=== PATIENT | female | born 1945 | race African-American/Black ===

== ENCOUNTER 2017-09-26 06:31 | Emergency (ER) | payer MEDICARE, OTHER ==
[~2017-09-26] VITALS: Ht 154.9 cm; Wt 97.4 kg
[~2017-09-26 06:31] MED LIST: AMLO5TAB22 PO; FERR324T4 PO; LISI-363 PO; METF500 PO; POTA-243 PO
[2017-09-26 06:35] VITALS: BP 140/85; PULSE 86; RESP 18; TEMP 97.8; O2SAT 99
--- NOTE | 2017-09-26 06:58 | PD ---
HPI Chief Complaint: injury Time Seen by Provider: 06:43 Travel History International Travel<30 days: No Contact w/Intl Traveler<30days: No Traveled to known affect area: No History of Present Illness HPI 72-year-old female complains of left shoulder pain, left-sided chest wall pain, left hip pain. Patient fell on the left side about 2 weeks ago. Patient states that she had persistent pain on the left shoulder left-sided chest wall and left hip since then. Patient denies any head injury. Patient denies any headache or neck pain. Patient denies any shortness of breath. Patient denies abdominal pain. Patient denies any back pain. Patient states the pain is sharp pain localized to left shoulder, left chest wall left hip. Patient denies any pain radiation. Patient states that the pain is worse with movement of the left shoulder joint and left hip. Patient has history of breast cancer status post left breast lumpectomy with sentinel node biopsy, radiation therapy and chemotherapy. Patient has history of diabetes, hypertension, chronic kidney disease, anemia. PFSH Past Medical History High Cholesterol: Yes Diabetes: Yes Diminished Hearing: No Gout: Yes Hypertension: Yes Immunizations Current: Yes Past Surgical History Appendectomy: Yes Hysterectomy: Yes Joint Replacement: Yes (BILATERAL KNEES) Social History Alcohol Use: No Tobacco Use: No Substance Use: No Allergies-Medications (Allergen,Severity, Reaction): Coded Allergies: acetaminophen (Unverified Allergy, Severe, 05/01/17) propoxyphene (Unverified Allergy, Severe, 05/01/17) indomethacin (Unverified Adverse Reaction, Mild, GI UPSET, 05/01/17) Reported Meds & Prescriptions Reported Meds & Active Scripts Active Glucophage 500 mg (Metformin HCl) 500 Mg Tab 500 Mg PO BIDPC 30 Days Ferrous Sulfate 325 Mg Tab 325 Mg PO BID 30 Days Lisinopril 20 mg (Lisinopril) 20 Mg Tab 1 Tab PO DAILY Hold until PCP follow-up Reported Amlodipine Besylate 5 mg (Amlodipine Besylate) 5 Mg Tab 1 Tab PO DAILY K-Dur (Potassium Chloride) 10 Meq Tabcr 10 Meq PO DAILY UNKNOWN DOSE Review of Systems General / Constitutional: No: Fever Eyes: No: Visual changes HENT: No: Headaches Cardiovascular: No: Chest Pain or Discomfort Respiratory: No: Shortness of Breath Gastrointestinal: No: Abdominal Pain Genitourinary: No: Dysuria Musculoskeletal: Positive: Pain Skin: No Rash Neurologic: No: Weakness Psychiatric: No: Depression Endocrine: No: Polydipsia Hematologic/Lymphatic: No: Easy Bruising Physical Exam Narrative GENERAL: Well-nourished, well-developed patient. SKIN: Focused skin assessment warm/dry. HEAD: Normocephalic. EYES: No scleral icterus. No injection or drainage. NECK: Supple, trachea midline. No JVD or lymphadenopathy. CARDIOVASCULAR: Regular rate and rhythm without murmurs, gallops, or rubs. RESPIRATORY: Breath sounds equal bilaterally. No accessory muscle use. GASTROINTESTINAL: Abdomen soft, non-tender, nondistended. MUSCULOSKELETAL: Patient has moderate tenderness on palpation diffusely over the left shoulder, left sided chest wall mid axillary line, lateral aspect of the left hip. Limited range of motion the left shoulder secondary to pain. No chest wall crepitus or deformity noted. Full range of motion the left hip. BACK: Nontender without obvious deformity. No CVA tenderness. Neurologic exam normal. Data Data Last Documented VS Vital Signs Date Time Temp Pulse Resp B/P (MAP) Pulse Ox O2 Delivery O2 Flow Rate FiO2 09/26/17 06:35 97.8 86 18 140/85 (103) 99 Orders Orders Hip, Uni(Ap&Lat) W Ap Pelvis (09/26/17 06:49) Shoulder, Limited(2vws) (09/26/17 06:49) Ribs, Uni (W/Exp Cxr-Min 3vw) (09/26/17 06:49) MDM Medical Decision Making Medical Screen Exam Complete: Yes Emergency Medical Condition: Yes Differential Diagnosis Differential diagnosis including contusion, fracture, dislocation, hemopneumothorax. Narrative Course 72-year-old female with left shoulder injury, left chest with injury, left hip injury. Status post fall. Tyson Todd MD Sep 26, 2017 06:58
[2017-09-26] MEDS ORDERED: SPIR50TA PO (07:12)
[2017-09-26] MEDS ORDERED: FERR325T18 PO (07:12)
[2017-09-26] MEDS ORDERED: METF500T PO (07:12)
[2017-09-26] MEDS ORDERED: FURO20TA PO (07:12)
[2017-09-26] MEDS ORDERED: ALLO100T PO (07:12)
[2017-09-26] MEDS ORDERED: ATOR20TA15 PO (07:12)
[2017-09-26] MEDS ORDERED: ANAS1TAB PO (07:12)
[2017-09-26] MEDS ORDERED: ERGO2000 PO (07:12)
[2017-09-26] MEDS ORDERED: LISI-515 PO (07:12)
[2017-09-26] MEDS ORDERED: POTA10TA2 PO (07:12)
--- NOTE | 2017-09-26 07:45 | RADRPT ---
EXAM DATE/TIME: 09/26/2017 07:12 [facility] COMPARISON: No previous studies available for comparison. INDICATIONS : Fall, left side lateral rib pain. MEDICAL HISTORY : Carcinoma, breast. SURGICAL HISTORY : Mastectomy, bilateral. ENCOUNTER: Initial ACUITY: 2 weeks PAIN SCORE: 10/10 LOCATION: Left lateral ribs FINDINGS: Multiple views of the left ribs were performed. There is no evidence of displaced fracture. No dest ructive lesions or areas of periosteal thickening are seen. Expiratory view of the chest is negative for pneumothorax. The mediastinal structures are midline. CONCLUSION: Unremarakble examination of the left ribs and chest. Donaldo Ramirez MD on September 26, 2017 at 7:41 Board Certified Radiologist. This report was verified electronically.
--- NOTE | 2017-09-26 07:46 | RADRPT ---
EXAM DATE/TIME: 09/26/2017 07:12 [facility] COMPARISON: No previous studies available for comparison. INDICATIONS : Fall, left shoulder pain. MEDICAL HISTORY : Carcinoma, breast. SURGICAL HISTORY : Mastectomy, bilateral. ENCOUNTER: Initial ACUITY: 2 weeks PAIN SCORE: 10/10 LOCATION: Left shoulder FINDINGS: Two view examination of the left shoulder demonstrates no evidence of fracture or dislocation. Mild d egenerative changes. The glenohumeral and acromioclavicular joints are maintained. Bony mineralizati on is normal. CONCLUSION: Mild degenerative changes without fracture. Donaldo Ramirez MD on September 26, 2017 at 7:42 Board Certified Radiologist. This report was verified electronically.
--- NOTE | 2017-09-26 07:47 | RADRPT ---
EXAM DATE/TIME: 09/26/2017 07:12 [facility] COMPARISON: No previous studies available for comparison. INDICATIONS : Fall, left hip pain. MEDICAL HISTORY : None. SURGICAL HISTORY : None. ENCOUNTER: Initial ACUITY: 2 weeks PAIN SCORE: 10/10 LOCATION: Left hip FINDINGS: Examination of the left hip was performed with AP Pelvis. The primary and secondary trabecular patte rn of the femoral neck is intact. The hip joint is of normal width without significant sclerosis or bony hypertrophy. The acetabulum is grossly intact. There is whiskering along the iliac crests. CONCLUSION: Unremarkable examination of the left hip. Donaldo Ramirez MD on September 26, 2017 at 7:43 Board Certified Radiologist. This report was verified electronically.
[2017-09-26] MEDS ORDERED: TYLETAB34 PO (08:16)
--- NOTE | 2017-09-26 08:18 | PD ---
Data Data Last Documented VS Vital Signs Date Time Temp Pulse Resp B/P (MAP) Pulse Ox O2 Delivery O2 Flow Rate FiO2 09/26/17 07:22 16 97 Room Air 09/26/17 06:35 97.8 86 140/85 (103) Orders Orders Hip, Uni(Ap&Lat) W Ap Pelvis (09/26/17 06:49) Shoulder, Limited(2vws) (09/26/17 06:49) Ribs, Uni (W/Exp Cxr-Min 3vw) (09/26/17 06:49) MDM Supervised Visit with DEBI: No Narrative Course This case is checked out to me by Dr. Todd at 7 AM. This patient a fall on her left side and complains of pains throughout the left side but her worst pain is in the left shoulder. I reviewed all of her x-rays and discussed them with her. X-rays of hip and pelvis ribs and shoulder are reviewed and have no fractures seen. There is some mild arthritic change in the left shoulder. She requests something for pain and I wrote a few Tylenol 3's to use as needed. She says she can take them. Her chart lists an acetaminophen allergy which I don't believe is true. Diagnosis Primary Impression: Contusion of shoulder, left Qualified Codes: S40.012A - Contusion of left shoulder, initial encounter Additional Impression: Contusion of rib on left side Qualified Codes: S20.212A - Contusion of left front wall of thorax, initial encounter Additional Instruction: The patient was advised to follow up with their physician and return if they worsen. The patient was warned about potential sedation for the medications they will receive on prescription. Med/Other Pt SpecificInfo: Prescription(s) given Scripts Acetaminophen-Codeine (Tylenol-Codeine #3) 300-30 mg Tab 1 TAB PO Q4H Y for PAIN, #15 TAB 0 Refills Prov: Pavel Jauregui MD 09/26/17 Disposition: 01 DISCHARGE HOME Condition: Stable Pavel Jauregui MD Sep 26, 2017 08:18
== END 2017-09-26 09:15 | disposition home or self-care (01) ==
LOC: PHED 06:31
DX: S40.012A Contusion of left shoulder, initial encounter (principal); S20.212A Contusion of left front wall of thorax, initial encounter; M25.552 Pain in left hip; I12.9 Hypertensive chronic kidney disease with stage 1 through stage 4 chronic kidney disease, or unspecified chronic kidney disease; E11.22 Type 2 diabetes mellitus with diabetic chronic kidney disease; N18.9 Chronic kidney disease, unspecified; W19.XXXA Unspecified fall, initial encounter
CPT/HCPCS: 71101; 73030; 73502; 99284

== ENCOUNTER 2018-02-17 20:21 | Emergency (ER) | payer OTHER ==
[~2018-02-17] VITALS: Ht 160 cm; Wt 98.5 kg
[~2018-02-17 20:21] MED LIST changes: +ALLO100T PO; -AMLO5TAB22 PO; +ANAS1TAB PO; +ATOR20TA15 PO; +ERGO2000 PO; -FERR324T4 PO; +FERR325T18 PO; +FURO20TA PO; -LISI-363 PO; +LISI-515 PO; -METF500 PO; +METF500T PO; -POTA-243 PO; +POTA10TA2 PO; +SPIR50TA PO; +TYLETAB34 PO
[2018-02-17 20:22] VITALS: BP 180/93; PULSE 90; RESP 18; TEMP 98.5; O2SAT 100
[2018-02-17 21:12] VITALS: BP 162/97; PULSE 82; RESP 18; O2SAT 97
[2018-02-17] MEDS ORDERED: ONDANSETRON ODT 4 MG TAB PO ONE (21:45)
[2018-02-17] MEDS ORDERED: ACETAMINOPHEN/HYDROcodone 325 MG/5 MG TAB PO ONE (21:45)
[2018-02-17 22:15] VITALS: BP 146/91; PULSE 77; RESP 18; O2SAT 97
[2018-02-17] MEDS ORDERED: EXEM25TA PO (22:21)
--- NOTE | 2018-02-17 22:23 | RADRPT ---
EXAM DATE: 02/17/2018 10:19 PM EDT AGE/SEX: 72 years / Female INDICATIONS: Left arm pain. Patient states fell 6 months ago on left arm. CLINICAL DATA: This is the patient's initial encounter. Patient reports that signs and symptoms have been present for 4 - 6 months and indicates a pain score of 8/10. MEDICAL/SURGICAL HISTORY: Carcinoma, breast. None. COMPARISON: No prior [facility] exams available for comparison. FINDINGS: Bony structures are intact and in normal alignment. Osseous density is normal. Soft tissues are unre markable. No radiopaque foreign bodies seen. CONCLUSION: No evidence of recent bony injury. Electronically signed by: Todd Eubanks MD 02/17/2018 10:22 PM EDT
--- NOTE | 2018-02-17 22:23 | RADRPT ---
EXAM DATE: 02/17/2018 10:17 PM EDT AGE/SEX: 72 years / Female INDICATIONS: Chest pain. CLINICAL DATA: This is the patient's initial encounter. Patient reports that signs and symptoms have been present for 1 day and indicates a pain score of 2/10. MEDICAL/SURGICAL HISTORY: Carcinoma, breast. None. COMPARISON: No prior [facility] exams available for comparison. FINDINGS: PA and lateral views of the chest demonstrate the lungs to be symmetrically aerated without evidence of mass, infiltrate or effusion. The cardiomediastinal contours are unremarkable. Osseous structures are intact. CONCLUSION: Negative examination. Electronically signed by: Todd Eubanks MD 02/17/2018 10:22 PM EDT
[2018-02-17 22:43] VITALS: RESP 18
[2018-02-17] MEDS ORDERED: ZOFR4TAB3 SL (23:04)
[2018-02-17] MEDS ORDERED: NORC5TAB PO (23:04)
--- NOTE | 2018-02-17 23:05 | PD ---
HPI Chief Complaint: Numbness/Tingling Time Seen by Provider: 21:34 Travel History International Travel<30 days: No Contact w/Intl Traveler<30days: No Traveled to known affect area: No History of Present Illness HPI 72-year-old female with 6 months of left upper extremity pain and paresthesia states symptoms have not been relieved by [id number] acetaminophen and ibuprofen so presents now for complaint of increased tingling but denies any swelling weakness or new area/distribution of pain or tingling. Symptoms been present since fall with contusion August 2017. Patient has had imaging studies without any abnormalities identified. Patient presents now for reevaluation. Patient does have history of left-sided breast cancer status post lumpectomy and 36 treatments of radiation therapy no other surgical intervention no chemotherapy and patient is currently not undergoing any active management but is being followed by oncology. Patient denies any swelling of the left upper extremity any redness or pallor or coolness or weakness of the left upper extremity. Patient is right-handed. Patient notes limited range of motion at the left shoulder secondary to pain. PFSH Past Medical History Narrative Medical Anemia breast cancer status post lumpectomy and radiation therapy dyslipidemia CAD CHF diabetes hypertension diabetic neuropathy gouty arthritis; no tobacco use; nursing notes reviewed Blood Disorders: Yes (ANEMIA) Cancer: Yes (BREAST CA) Cardiovascular Problems: Yes (HTN) High Cholesterol: Yes Chest Pain: Yes Congestive Heart Failure: Yes Diabetes: Yes Patient Takes Glucophage: Yes Diminished Hearing: No Endocrine: Yes Gout: Yes Hypertension: Yes Immunizations Current: Yes Radiation Therapy: Yes (36 treatments) Influenza Vaccination: No Past Surgical History Appendectomy: Yes Hysterectomy: Yes Joint Replacement: Yes (BILATERAL KNEES) Other Surgery: Yes ( L LUMPECTOMY) Social History Alcohol Use: No Tobacco Use: No Substance Use: No Allergies-Medications (Allergen,Severity, Reaction): Coded Allergies: acetaminophen (Unverified Allergy, Severe, 02/17/18) propoxyphene (Unverified Allergy, Severe, 02/17/18) indomethacin (Unverified Adverse Reaction, Mild, GI UPSET, 02/17/18) Reported Meds & Prescriptions Reported Meds & Active Scripts Active Reported Exemestane 25 Mg Tab 25 Mg PO DAILY Allopurinol 100 Mg Tab 100 Mg PO DAILY Potassium Chloride ER (Potassium Chloride) 10 Meq Tab 10 Meq PO DAILY Ferrous Sulfate 325 Mg (65 Mg Iron) Tablet 325 Mg PO BIDPC Lisinopril 20 Mg Tab 20 Mg PO DAILY Atorvastatin (Atorvastatin Calcium) 20 Mg Tab 20 Mg PO HS Vitamin D2 (Ergocalciferol) 2,000 Unit Tab 50,000 Units PO DAILY Furosemide 20 Mg Tab 20 Mg PO BID Spironolactone 50 Mg Tab 50 Mg PO DAILY Metformin (Metformin HCl) 500 Mg Tab 500 Mg PO BIDPC Review of Systems Except as stated in HPI: all other systems reviewed are Neg Physical Exam Narrative GENERAL: Well-developed well-nourished female no acute distress no respiratory distress GCS 15 SKIN: Warm and dry. HEAD: Normocephalic. EYES: No scleral icterus. No injection or drainage. NECK: Supple, trachea midline. No JVD or lymphadenopathy. No JVD no lymphadenopathy CARDIOVASCULAR: Regular rate and rhythm without murmurs, gallops, or rubs. Chest wall: Nontender no soft tissue swelling RESPIRATORY: Breath sounds equal bilaterally. No accessory muscle use. GASTROINTESTINAL: Abdomen soft, non-tender, nondistended. MUSCULOSKELETAL: No cyanosis, or edema. 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 Data Data Last Documented VS Vital Signs Date Time Temp Pulse Resp B/P (MAP) Pulse Ox O2 Delivery O2 Flow Rate FiO2 02/17/18 21:20 18 Room Air 02/17/18 21:12 82 162/97 (118) 97 02/17/18 20:22 98.5 Orders Orders Humerus (Min 2vws) (02/17/18 ) Chest, Pa & Lat (02/17/18 ) Ondansetron Odt (Zofran Odt) (02/17/18 21:45) Acetamin-Hydrocod 325-5 Mg (Loyal 5-325 (02/17/18 21:45) MDM Medical Decision Making Medical Screen Exam Complete: Yes Emergency Medical Condition: Yes Medical Record Reviewed: Yes Interpretation(s) Last Impressions Humerus X-Ray 02/17/18 0000 Signed Impressions: CONCLUSION: No evidence of recent bony injury. Chest X-Ray 02/17/18 0000 Signed Impressions: CONCLUSION: Negative examination. Vital Signs Date Time Temp Pulse Resp B/P (MAP) Pulse Ox O2 Delivery O2 Flow Rate FiO2 02/17/18 21:20 18 Room Air 02/17/18 21:12 82 18 162/97 (118) 97 Room Air 02/17/18 20:22 98.5 90 18 180/93 (122) 100 Differential Diagnosis Cervical radiculopathy, brachial plexopathy, ulnar neuropathy, contusion, metastasis, lung mass, DVT, limb ischemia, diabetic neuropathy, rotator cuff injury Narrative Course 72-year-old female with 6 months of left upper extremity pain and paresthesia states symptoms have not been relieved by [id number] acetaminophen and ibuprofen so presents now for complaint of increased tingling but denies any swelling weakness or new area/distribution of pain or tingling. Symptoms been present since fall with contusion August 2017. Patient has had imaging studies without any abnormalities identified. Patient presents now for reevaluation. Have ordered chest x-ray and left upper extremity x-ray; administered Zofran 4 mg ODT and Lortab 01/3251 At 11 PM symptoms have resolved patient stable for outpatient management encouraged to follow-up with her primary care provider and oncologist may require orthopedic referral for rotator cuff injury. Patient and daughter at bedside are aware of imaging results and satisfied with discharge planning. Diagnosis Primary Impression: Injury, shoulder and upper arm Qualified Codes: S49.92XD - Unspecified injury of left shoulder and upper arm , subsequent encounter Additional Impression: Rotator cuff (capsule) sprain Qualified Codes: S43.422D - Sprain of left rotator cuff capsule, subsequent encounter Referrals: Primary Care Physician 2 days Patient Instructions: General Instructions Med/Other Pt SpecificInfo: Prescription(s) given Scripts Hydrocodone-Acetaminophen (Loyal) 5 Mg-325 Mg Tab 1 TAB PO Q6H Y for PAIN, #10 TAB 0 Refills Prov: Vero Sethi MD 02/17/18 Ondansetron Odt (Zofran Odt) 4 Mg Tab 4 MG SL Q6HR Y for Nausea/Vomiting, #15 TAB 0 Refills Prov: Vero Sethi MD 02/17/18 Disposition: 01 DISCHARGE HOME Condition: Stable Vero Sethi MD Feb 17, 2018 23:05
[2018-02-17 23:24] VITALS: BP 145/85
== END 2018-02-17 23:26 | disposition home or self-care (01) ==
LOC: PHED 20:21
DX: S43.422D Sprain of left rotator cuff capsule, subsequent encounter (principal); I11.0 Hypertensive heart disease with heart failure; I50.9 Heart failure, unspecified; D63.8 Anemia in other chronic diseases classified elsewhere; M10.9 Gout, unspecified; E11.40 Type 2 diabetes mellitus with diabetic neuropathy, unspecified; E78.00 Pure hypercholesterolemia, unspecified; W19.XXXD Unspecified fall, subsequent encounter; Z79.899 Other long term (current) drug therapy
CPT/HCPCS: 71046; 73060; 99283